=== PATIENT | male | born 1985 | race Two or more races ===

== ENCOUNTER 2016-12-27 02:18 | Emergency (ER) | payer OTHER ==
[~2016-12-27] VITALS: Ht 185.4 cm; Wt 97.5 kg
[2016-12-27] MEDS ORDERED: Norco 5mg/325mg tab ORAL ONE (02:30)
--- NOTE | 2016-12-27 02:32 | Emergency Room Report ---
History of Present Illness General Chief Complaint: Lower Back Pain or Injury Source: Patient Present Illness HPI Miguel Ángely a 31-year-old male with no past medical history. He presents with right flank pain. Onset this afternoon. Mild initially. But since then been more severe. Unable to sleep because of the pain. No radiation. He said he felt hard time urinating. Denies any blood. Pain is 8/10. Nothing made it better. Nothing made it worse. Allergies: Coded Allergies: No Known Allergies (Unverified , 12/27/16) Patient History Past Medical History: see triage record, old chart reviewed Past Surgical History: none Pertinent Family History: none Social History: Denies: smoking Immunizations: other Reviewed Nursing Documentation: PMH: Agreed, PSxH: Agreed Nursing Documentation-PMH Past Medical History: No Stated History Review of Systems Eye: Denies: blurred vision, eye pain ENT: Denies: ear pain, nose congestion, throat swelling Respiratory: Denies: cough, shortness of breath Cardiovascular: Denies: chest pain, palpitations Gastrointestinal: Denies: abdominal pain, diarrhea, nausea, vomiting Musculoskeletal: Reports: back pain, Denies: joint pain Skin: Denies: rash Neurological: Denies: headache, numbness Endocrine: Denies: increased thirst, increased urine Hematologic/Lymphatic: Denies: easy bruising All Other Systems: negative except mentioned in HPI Physical Exam Vital Signs Date Time Temp Pulse Resp B/P Pulse Ox O2 Delivery O2 Flow Rate FiO2 12/27/16 02:22 97.3 63 16 131/83 99 Room Air vitals normal Sp02 EP Interpretation: reviewed, normal General Appearance: well appearing, no apparent distress, alert Head: normocephalic, atraumatic Eyes: bilateral eye EOMI, bilateral eye PERRL ENT: hearing grossly normal, normal pharynx Neck: full range of motion, supple, no meningismus Respiratory: chest non-tender, lungs clear, normal breath sounds Cardiovascular #1: regular rate, rhythm, no murmur Gastrointestinal: normal bowel sounds, non tender, no mass, no organomegaly, no bruit, non-distended Musculoskeletal: back normal, gait/station normal, normal range of motion Psychiatric: mood/affect normal Skin: warm/dry Medical Decision Making Diagnostic Impression: Primary Impression: Ureteral calculus, right Additional Impression: UTI (urinary tract infection) Qualified Codes: N30.00 - Acute cystitis without hematuria ER Course Patient presents with ureteral stone. Questionable mild UTI. No kidney injury. No fever. No sepsis. He felt better now. We'll discharge home. Will have close followup at the [facility]. Lab Results Impression labs normal Last Vital Signs Date Time Temp Pulse Resp B/P Pulse Ox O2 Delivery O2 Flow Rate FiO2 12/27/16 02:22 97.3 63 16 131/83 99 Room Air Status: improved Disposition: HOME, SELF-CARE Condition: Stable Scripts Tamsulosin Hcl (TAMSULOSIN HCL*) 0.4 Mg Cap.er.24h 0.4 MG ORAL BEDTIME, #7 CAP Prov: CARLOS VAZQUEZ M.D. 12/27/16 Cephalexin* (KEFLEX*) 500 Mg Capsule 500 MG ORAL TID, #21 CAP 0 Refills Prov: CARLOS VAZQUEZ M.D. 12/27/16 Hydrocodone/Acetaminophen 5-325* (HYDROCODONE/ACETAMINOPHEN 5-325*) 1 Each Tablet 1 TAB ORAL Q6H Y for For Pain, #15 TAB 0 Refills Prov: CARLOS VAZQUEZ M.D. 12/27/16 Additional Instructions: Followup at [facility] in one to 2 days. Return for fever, chills, increasing pain , vomiting or any concern. CARLOS VAZQUEZ M.D. Dec 27, 2016 02:32
[2016-12-27 02:45] LABS: APPEARANCE,URINE CLOUDY; KETONES,URINE 1+ (NEGATIVE); LEUKOCYTE ESTERASE ,URINE 2+ (NEGATIVE); NITRITE,URINE NEGATIVE (NEGATIVE); PH,URINE 5 (4.5-8.0); PROTEIN,URINE 3+ (NEGATIVE); UROBILINOGEN,URINE 4 MG/DL (0.0-1.0)
[2016-12-27 02:57] LABS: BACTERIA,URINE MODERATE /HPF; CALCIUM OXALATE CRYSTALS,UR FEW /LPF; MUCUS,URINE MANY /LPF (NONE/OCC); RBC,URINE TNTC /HPF (0 - 0); SQUAMOUS EPITHELIAL CELL,UR FEW /LPF (NONE/OCC); WBC,URINE 15-20 /HPF (0 - 0)
[2016-12-27] MEDS ORDERED: Cephalexin 500mg cap ORAL ONE (03:15)
[2016-12-27 03:30] VITALS: BP 106/63
[2016-12-27] MEDS ORDERED: cefTRIAXone 1 GM in NS 55 ML IVPB ONE (04:00)
[2016-12-27 04:22] LABS: BASOPHILS % (AUTO) 0.7 % (0.0-2.0); EOSINOPHILS % (AUTO) 1.1 % (0.0-3.0); LYMPHOCYTES % (AUTO) 7.8 % (20.0-45.0); MEAN CORPUSCULAR HEMOGLOBIN 29.7 PG (27.0-31.0); MEAN CORPUSCULAR HGB CONC 33.7 G/DL (32.0-36.0); MEAN CORPUSCULAR VOLUME 88 FL (80-99); MEAN PLATELET VOLUME 7.6 FL (6.5-10.1); NEUTROPHILS % (AUTO) 84.4 % (45.0-75.0); PLATELET COUNT 246 K/UL (150-450); RED BLOOD COUNT 4.88 M/UL (4.70-6.10); WHITE BLOOD COUNT 10.5 K/UL (4.8-10.8)
[2016-12-27 04:44] LABS: ANION GAP 17 (5-15); CALCIUM 9.7 mg/dL (8.6-10.2); CARBON DIOXIDE 23 mEQ/L (20-30); CHLORIDE 103 mEQ/L (98-107); CREATININE 0.9 mg/dL (0.7-1.2); GLOMERULAR FILTRATION RATE > 60 mL/min (>60); HEMOLYSIS 19; POTASSIUM 3.9 mEQ/L (3.4-4.9); SODIUM 143 mEQ/L (135-145)
[2016-12-27] MEDS ORDERED: TAMSULOSIN HCL0.4 MG ORAL (05:06)
[2016-12-27] MEDS ORDERED: KEFLEX500 MG ORAL (05:06)
[2016-12-27] MEDS ORDERED: HYDROCODON-ACE1 EA15 ORAL (05:06)
[2016-12-27 05:24] VITALS: BP 110/71
--- NOTE | 2016-12-27 09:10 | Diagnostic Imaging Report ---
Indication: Abdominal pain Technique: Continuous helical transaxial imaging of the abdomen and pelvis was obtained from the lung bases to the pubic symphysis. No intravenous contrast was administered. Coronal 2-D reformats were also obtained. Total Dose length Product (DLP): [address] Dose Index Volume (CTDIvol): 17 mGy Comparison: none Findings: There is mild right hydronephrosis and periureteral stranding secondary to a tiny stone in the midportion of the right ureter. The stone is about 2 mm in size. No other stones are identified in kidney. Gallbladder is contracted grossly unremarkable. Appendix is normal. There is no free fluid. Urinary bladder is nondistended. No evidence of bowel obstruction or free air. Lung bases are clear. Impression: 2 mm right mid ureter stone with mild right hydronephrosis. Negative exam otherwise The CT scanner at [facility] is accredited by the [employer] and the scans are performed using dose optimization techniques as appropriate to a performed exam including Automatic Exposure control.
== END 2016-12-27 05:24 | disposition home or self-care (01) ==
LOC: EMR 02:56
DX: N13.2 Hydronephrosis with renal and ureteral calculous obstruction (principal); N39.0 Urinary tract infection, site not specified
CPT/HCPCS: 36415; 74176; 80048; 81003; 82550; 85025; 87086; 96361; 96374; 99284; J0696